=== PATIENT | male | born 1990 | race Caucasian/White ===

== ENCOUNTER 2019-07-04 11:32 | Emergency (ER) | payer SELFPAY ==
[~2019-07-04] VITALS: Ht 180.3 cm; Wt 74.8 kg
[2019-07-04 12:20] VITALS: BP 116/80
[2019-07-04] MEDS ORDERED: DIPHTH,PERTUSS(ACELL),TET TOX 0.5 ML DISP.SYRIN. VAX IM ONE (12:45)
[2019-07-04] MEDS ORDERED: LIDOCAINE 1%/EPI 1:100,000 20 ML VIAL. SQ ONE (13:15)
[2019-07-04] MEDS ORDERED: SULF1TAB24 PO (14:14)
[2019-07-04] MEDS ORDERED: HYDR-2761 PO (14:14)
[2019-07-04] MEDS ORDERED: MUPI22OI2 TP (14:14)
--- NOTE | 2019-07-04 14:14 | PHYS DOC ---
Past Medical History Past Medical History: No Pertinent History Past Surgical History: No Surgical History Alcohol Use: None Drug Use: None Adult General Chief Complaint Chief Complaint: INSECT BITE HPI HPI Patient is a 29 year old male with red tender areas to left buttock and right ribs with surrounding erythema x1 week Review of Systems Review of Systems Constitutional: Denies fever or chills [] Eyes: Denies change in visual acuity, redness, or eye pain [] HENT: Denies nasal congestion or sore throat [] Respiratory: Denies cough or shortness of breath [] Cardiovascular: No additional information not addressed in HPI [] GI: Denies abdominal pain, nausea, vomiting, bloody stools or diarrhea [] : Denies dysuria or hematuria [] Musculoskeletal: Denies back pain or joint pain [] Integument: Denies rash or skin lesions [] Neurologic: Denies headache, focal weakness or sensory changes [] Endocrine: Denies polyuria or polydipsia [] All other systems were reviewed and found to be within normal limits, except as documented in this note. Current Medications Current Medications Current Medications Medications (Trade) Dose Ordered Sig/Cooper Start Time Stop Time Status Last Admin Dose Admin Diphtheria/ Tetanus/Acell Pertussis (Boostrix) 0.5 ml ONCE ONCE 07/04/19 12:45 07/04/19 12:46 DC 07/04/19 12:52 0.5 ML Lidocaine/ Epinephrine (LIDOCAINE 1%-EPI 1:100,000 Multi-Dose) 20 ml 1X ONCE 07/04/19 13:15 07/04/19 13:16 DC 07/04/19 12:50 20 ML Neomycin/ Polymyxin/ Bacitracin (Triple Antibiotic Ointment) 1 pkt 1X ONCE 07/04/19 14:15 07/04/19 14:16 Allergies Allergies Allergies Coded Allergies Type Severity Reaction Last Updated Verified No Known Drug Allergies 07/04/19 No Physical Exam Physical Exam Constitutional: Well developed, well nourished, no acute distress, non-toxic appearance. [] HENT: Normocephalic, atraumatic, bilateral external ears normal, oropharynx moist, no oral exudates, nose normal. [] Eyes: PERRLA, EOMI, conjunctiva normal, no discharge. [] Neck: Normal range of motion, no tenderness, supple, no stridor. [] Cardiovascular:Heart rate regular rhythm, no murmur [] Lungs & Thorax: Bilateral breath sounds clear to auscultation [] Abdomen: Bowel sounds normal, soft, no tenderness, no masses, no pulsatile masses. [] Skin: Warm, dry, no erythema, no rash. [] Back: No tenderness, no CVA tenderness. [] Extremities: No tenderness, no cyanosis, no clubbing, ROM intact, no edema. [] Neurologic: Alert and oriented X 3, normal motor function, normal sensory function, no focal deficits noted. [] Psychologic: Affect normal, judgement normal, mood normal. [] Current Patient Data Vital Signs Vital Signs Date Time Temp Pulse Resp B/P (MAP) Pulse Ox O2 Delivery O2 Flow Rate FiO2 07/04/19 12:20 98.3 90 16 116/80 (92) 99 Room Air 98.3 EKG EKG [] Radiology/Procedures Radiology/Procedures [] Course & Med Decision Making Course & Med Decision Making Pertinent Labs and Imaging studies reviewed. (See chart for details) [] Dragon Disclaimer Dragon Disclaimer This electronic medical record was generated, in whole or in part, using a voice recognition dictation system. Departure Departure Impression: Primary Impression: Cutaneous abscess of chest wall Additional Impression: Cutaneous abscess of buttock Disposition: 01 HOME, SELF-CARE Condition: STABLE Referrals: NO PCP (PCP) Patient Instructions: Abscess, Care After, Abscess, [id number] Additional Instructions: Fill the prescription(s) and use as directed. You may take tylenol or ibuprofen as needed for pain. Leave the Dressing that was placed in the ER in place for the next 24 hours, then change the dressing twice daily and apply antibiotic ointment as needed. You may apply warm, moist packs to the area to help decrease discomfort. Follow up with your primary care doctor or return to the ER in 48 hours to have wound rechecked. Return to the ER sooner if your symptoms worsen. Scripts Hydrocodone Bit/Acetaminophen (HYDROCODONE-APAP 5-325 ) 1 Tab Tablet 1 TAB PO PRN Q6HRS PRN for PAIN for 3 Days, #10 TAB 0 Refills Prov: LARISSA KNOX SHIPMASTER 07/04/19 Mupirocin (MUPIROCIN OINTMENT) 22 Gm Oint...g. 1 HAROON TP TID for WOUND CARE for 7 Days, #1 TUBE 0 Refills Prov: LARISSA KNOX SHIPMASTER 07/04/19 Sulfamethoxazole/Trimethoprim (BACTRIM DS TABLET) 1 Each Tablet 1 TAB PO BID for 7 Days, #14 TAB 0 Refills Prov: LARISSA KNOX SHIPMASTER 07/04/19 Problem Qualifiers LARISSA KNOX SHIPMASTER Jul 04, 2019 14:14
[2019-07-04] MEDS ORDERED: NEOMY/BACITR/POLYMYXIN OINT PACKET. TP ONE (14:15)
== END 2019-07-04 14:35 | disposition home or self-care (01) ==
LOC: ER 11:32
DX: L02.213 Cutaneous abscess of chest wall (principal); L02.31 Cutaneous abscess of buttock
CPT/HCPCS: 90471; 90715; 96372; 99284; J3490

== ENCOUNTER 2020-03-25 14:28 | Emergency (ER) | payer SELFPAY ==
[~2020-03-25] VITALS: Ht 180.3 cm; Wt 75.0 kg
[~2020-03-25 14:28] MED LIST: HYDR-2761 PO; MUPI22OI2 TP; SULF1TAB24 PO
[2020-03-25 14:45] VITALS: BP 141/85
[2020-03-25] MEDS ORDERED: HYDR-3164 PO (15:12)
[2020-03-25] MEDS ORDERED: CEPH-264 PO (15:12)
--- NOTE | 2020-03-25 15:19 | PHYS DOC ---
Past Medical History Past Medical History: No Pertinent History (VERNELL TURNER CUSTOMER EXPERIENCE MANAGER) Past Surgical History: No Surgical History (VERNELL TURNER CUSTOMER EXPERIENCE MANAGER) Smoking Status: Current Every Day Smoker Alcohol Use: Heavy Drug Use: None Social History Narrative: NOT DAILY USE (VERNELL TURNER CUSTOMER EXPERIENCE MANAGER) General Adult EDM: Chief Complaint: INSECT BITE HPI: HPI: Patient is a 29 year old male who presents with wound to left upper thigh. Patient reports that 1 week ago he believes he was bit by an insect and he started having redness, swelling, and pain to left thigh. Patient does have an abscess to his left thigh approximately dollar coin sized with cellulitis spanning over mid thigh. The abscess is open and draining purulent and bloody fluid of thick purulent patient reports that pain is an 8 out of 10 there is no radiation. He reports that pain is worse with standing and ambulation. Patient denies fever, back pain, headache, body aches, fatigue, abdominal pain, nausea, vomiting, diarrhea, chest pain, shortness of breath, numbness or tingling. No swelling to the extremity. (VERNELL TURNER CUSTOMER EXPERIENCE MANAGER) Review of Systems: Review of Systems: Constitutional: Denies fever or chills. [] Eyes: Denies change in visual acuity. [] HENT: Denies nasal congestion or sore throat. [] Respiratory: Denies cough or shortness of breath. [] Cardiovascular: Denies chest pain or edema. [] GI: Denies abdominal pain, nausea, vomiting, bloody stools or diarrhea. [] : Denies dysuria. [] Musculoskeletal: Denies back pain or joint pain. [] Integument: Denies rash. Left dorsal thigh abscess. [] Neurologic: Denies headache, focal weakness or sensory changes. [] Endocrine: Denies polyuria or polydipsia. [] Lymphatic: Denies swollen glands. [] Psychiatric: Denies depression or anxiety. [] (VERNELL TURNER CUSTOMER EXPERIENCE MANAGER) Heart Score: Risk Factors: Risk Factors: DM, Current or recent (<one month) smoker, HTN, HLP, family history of CAD, obesity. Risk Scores: Score 0 - 3: 2.5% MACE over next 6 weeks - Discharge Home Score 4 - 6: 20.3% MACE over next 6 weeks - Admit for Clinical Observation Score 7 - 10: 72.7% MACE over next 6 weeks - Early Invasive Strategies (VERNELL TURNER APRN) Allergies: Allergies: Allergies Coded Allergies Type Severity Reaction Last Updated Verified No Known Drug Allergies 07/04/19 No (VERNELL TURNER APRN) Physical Exam: PE: Constitutional: Well developed, well nourished, no acute distress, non-toxic appearance. [] HENT: Normocephalic, atraumatic, bilateral external ears normal, oropharynx moist, no oral exudates, nose normal. [] Eyes: PERRLA, EOMI, conjunctiva normal, no discharge. [] Neck: Normal range of motion, no tenderness, supple, no stridor. [] Cardiovascular:Heart rate regular rhythm, no murmur [] Lungs & Thorax: Bilateral breath sounds clear to auscultation [] Abdomen: Bowel sounds normal, soft, no tenderness, no masses, no pulsatile masses. [] Skin: Warm, dry, no erythema, no rash. Left dorsal thigh abscess that is draining purulent and bloody fluid. [] Back: No tenderness, no CVA tenderness. [] Extremities: No tenderness, no cyanosis, no clubbing, ROM intact, no edema. [] Neurologic: Alert and oriented X 3, normal motor function, normal sensory function, no focal deficits noted. [] Psychologic: Affect normal, judgement normal, mood normal. [] ([facility] APRN) Current Patient Data: Vital Signs: Vital Signs Date Time Temp Pulse Resp B/P (MAP) Pulse Ox O2 Delivery O2 Flow Rate FiO2 03/25/20 14:45 97.9 107 16 141/85 (103) 98 Room Air 97.9 ([facility] CUSTOMER EXPERIENCE MANAGER) EKG: EKG: [] ([facility] APRN) Radiology/Procedures: Radiology/Procedures: [] ([facility] APR[facility]) Course & Med Decision Making: Course & Med Decision Making Pertinent Labs and Imaging studies reviewed. (See chart for details) Alert and oriented. Speaks in full clear sentences. Ambulatory with a steady gait. Skin pink warm and dry. Afebrile. Patient denies any medical history and takes no medications daily. The area of cellulitis is outlined with a marker. Patient is educated to return in 48 hours for a wound recheck. Patient is placed on Keflex antibiotic. [] (VERNELL TURNER APRN) Eddie Disclaimer: Eddie Disclaimer: This electronic medical record was generated, in whole or in part, using a voice recognition dictation system. (VERNELL TURNER APRN) Departure Departure Impression: Primary Impression: Abscess Disposition: HOME, SELF-CARE Condition: STABLE Referrals: NO PCP (PCP) Patient Instructions: Abscess, Sitz Bath, [id number] Additional Instructions: Use a warm compress over the area 3 or 4 times a day to help the wound drain. Keep it covered and clean. Take antibiotic as prescribed and with food. Return in 48 hours for a wound recheck. Scripts Hydrocodone/Apap 5-325 (NORCO 5-325 TABLET) 1 Each Tablet 1 TAB PO PRN Q6HRS PRN for PAIN, #10 TAB 0 Refills Prov: VERNELL TURNER APRN 03/25/20 Cephalexin (KEFLEX) 500 Mg Capsule 500 MG PO QID for 10 Days, #40 CAP Prov: VERNELL TURNER APRN 03/25/20 Justicifation of Admission Dx: Justifications for Admission: Justification of Admission Dx: N/A (VERNELL TURNER APRN) Attending Signature Attending Signature I have participated in the care of this patient and I have reviewed and agree with all pertinent clinical information above including history, exam, and recommendations. (CHERRY KILGORE DO) VERNELL TURENR APRN Mar 25, 2020 15:19 CHERRY KILGORE DO Mar 25, 2020 16:40
== END 2020-03-25 15:25 | disposition home or self-care (01) ==
LOC: ER 14:28
DX: L02.416 Cutaneous abscess of left lower limb (principal); R60.0 Localized edema; F17.200 Nicotine dependence, unspecified, uncomplicated; F12.90 Cannabis use, unspecified, uncomplicated
CPT/HCPCS: 99283